=== PATIENT | female | born 1975 | race Caucasian/White ===

== ENCOUNTER → 2016-09-05 | Outpatient (CLI) | payer OTHER ==
--- NOTE | ~2016-09-05 | US6 ---
[facility] A Service of [facility] RADIOLOGY TEXT RESULTS PATIENT: MADHURI COLEMAN LOCATION: US : [birth year] UNIT #: [id number] AGE: [address]: PRIYANKA WISE MD SEX: F ORDER DR: [id number] [facility] [address] [place], [place] [address] [id number] O MR#: [id number] Acc #: [id number] NAME: MADHURI COLEMAN : 1975 SEX: F STUDY DATE/TIME: 09/05/2016 9:29 UNIT: [facility]US ROOM: STUDY DESCRIPTION: US Abdominal Limited Attending Physician: Priyanka Wise M.D. Referring Physician: Priyanka Wise M.D. Ordering Physician: Priyanka Wise M.D. Primary Care Physician: Priyanka Wise M.D. MEDICAL IMAGING REPORT This report is preliminary unless electronic signature is present EXAM Right upper quadrant abdominal ultrasound INDICATION Elevated liver enzyme levels. Upper abdominal pain for the past 2 months. PROCEDURE Hdz-scale and Doppler imaging right upper quadrant of the abdomen. COMPARISON None. FINDINGS Visualized portions of pancreas unremarkable. Liver has diffusely increased echotexture. No liver mass is seen on submitted images. The liver measures 17.7 cm. Right kidney measures 11.3 cm. Unremarkable gallbladder. Common duct measures 3 mm. IMPRESSION Diffusely increased hepatic echotexture is most in keeping with steatosis. Otherwise negative right upper quadrant ultrasound. Dictated by... Colton Rosales M.D. THIS IS AN ELECTRONICALLY VERIFIED REPORT Colton Rosales M.D. at 09/06/2016 7:08 AM JILL/ernestina TD: 09/05/2016 13:55 JOB #: [id number] [facility] A Service of [facility] RADIOLOGY TEXT RESULTS PATIENT: MADHURI COLEMAN LOCATION: [facility] : 73 UNIT #: [id number] AGE: [address]: PRIYANKA WISE MD SEX: F ORDER DR: MEDICAL IMAGING REPORT COPY
== END | disposition home or self-care (01) ==
LOC: CGUS 08:59
DX: R74.0 Nonspecific elevation of levels of transaminase and lactic acid dehydrogenase [LDH] (principal)
CPT/HCPCS: 76705